=== PATIENT | male | born 1965 | race Caucasian/White ===

== ENCOUNTER 2017-12-15 14:05 | Inpatient (IN) | payer OTHER ==
[2017-12-15] VITALS (19 sets, daily range): BP systolic 91–135; BP diastolic 58–97
[~2017-12-15] VITALS: Ht 167.6 cm; Wt 61.7 kg
[2017-12-15] MEDS ORDERED: ECOTRIN325 MG PO (14:13)
[2017-12-15] MEDS ORDERED: ACETAMINOPHEN500 M1 PO (14:14)
[2017-12-15 14:52] LABS: BASOPHILS 0.5 % (0-2); EOSINOPHILS 1.4 % (0-7); HEMATOCRIT 24.9 % (42.0-54.0); HEMOGLOBIN 8.2 g/dL (13.5-17.5); IMMATURE GRANULOCYTES 0.4 % (0-5); MCH 29.9 pg (26.0-34.0); MCHC 32.9 g/dL (31.0-37.0); MCV 90.9 fL (80.0-100.0); MEAN PLATELET VOLUME 8.7 fL (7.4-10.4); MONOCYTES 4.3 % (2-11); NEUTROPHILS 68.4 % (40-80); PLATELET COUNT 337 10x3/uL (130-400); RBC 2.74 10x6/uL (4.20-6.10); RDW 15.4 % (11.5-14.5); WBC 8.5 10x3/uL (4.8-10.8)
[2017-12-15 14:58] LABS: PROTIME 12.8 SECONDS (11.6-15.0)
[2017-12-15 15:06] LABS: ALBUMIN 3.2 g/dL (3.4-5.0); ALKALINE PHOSPHATASE 48 U/L (46-116); ALT (SGPT) 30 U/L (10-68); CALC OSMOLALITY 278 mosm/kg (275-300); CALCIUM 8.2 mg/dL (8.5-10.1); CARBON DIOXIDE 27.1 mmol/L (21.0-32.0); CHLORIDE - SERUM 103 mmol/L (98-107); CREATININE - SERUM 0.7 mg/dL (0.6-1.3); GLUCOSE 109 mg/dL (74-106); POTASSIUM - SERUM 4.2 mmol/L (3.5-5.1); PROTEIN - SERUM 6.2 g/dL (6.4-8.2); SODIUM 137 mmol/L (136-145); UREA NITROGEN 23 mg/dL (7-18); eGFR NON AFRICAN AMERICAN > 90 mL/min (90-120)
[2017-12-15 15:23] LABS: AMYLASE - SERUM 138 U/L (25-115); CKMB 2.6 U/L (0.0-3.6)
[2017-12-15 22:17] LABS: CREATINE KINASE 172 UL (21-232)
[2017-12-15 22:18] LABS: TROPONIN-I < 0.017 ng/mL (0.000-0.060)
[2017-12-16] VITALS (25 sets, daily range): BP systolic 92–118; BP diastolic 55–91; Ht 167.6 cm; Wt 61.7 kg
[2017-12-16 03:59] LABS: BASOPHILS 0.3 % (0-2); HEMATOCRIT 29.1 % (42.0-54.0); HEMOGLOBIN 9.6 g/dL (13.5-17.5); IMMATURE GRANULOCYTES 0.4 % (0-5); LYMPHOCYTES 15.8 % (15-50); MCH 29.2 pg (26.0-34.0); MEAN PLATELET VOLUME 8.8 fL (7.4-10.4); MONOCYTES 3.8 % (2-11); NEUTROPHILS 78.7 % (40-80); PLATELET COUNT 279 10x3/uL (130-400); RDW 16.2 % (11.5-14.5)
[2017-12-16 04:03] LABS: MCV 88.4 fL (80.0-100.0); RBC 3.29 10x6/uL (4.20-6.10); WBC 11.3 10x3/uL (4.8-10.8)
[2017-12-16 04:22] LABS: ALKALINE PHOSPHATASE 41 U/L (46-116); ALT (SGPT) 27 U/L (10-68); AMYLASE - SERUM 143 U/L (25-115); BILIRUBIN - TOTAL 0.25 mg/dL (0.2-1.3); CALC OSMOLALITY 276 mosm/kg (275-300); CARBON DIOXIDE 28.5 mmol/L (21.0-32.0); CHLORIDE - SERUM 104 mmol/L (98-107); CREATININE - SERUM 0.6 mg/dL (0.6-1.3); GLUCOSE 105 mg/dL (74-106); LIPASE 337 U/L (73-393); MAGNESIUM - SERUM 1.9 mg/dL (1.8-2.4); POTASSIUM - SERUM 3.9 mmol/L (3.5-5.1); PROTEIN - SERUM 5.8 g/dL (6.4-8.2); SODIUM 137 mmol/L (136-145); UREA NITROGEN 22 mg/dL (7-18); eGFR NON AFRICAN AMERICAN > 90 mL/min (90-120)
[2017-12-16 08:59] LABS: HEMOGLOBIN 9.5 g/dL (13.5-17.5)
[2017-12-16 15:05] LABS: HEMATOCRIT 28.3 % (42.0-54.0); HEMOGLOBIN 9.4 g/dL (13.5-17.5)
[2017-12-16 21:16] LABS: HEMATOCRIT 27.4 % (42.0-54.0)
[2017-12-17] VITALS (13 sets, daily range): BP systolic 95–126; BP diastolic 62–94
[2017-12-17 04:18] LABS: BASOPHILS 0.4 % (0-2); EOSINOPHILS 3.9 % (0-7); HEMATOCRIT 27.5 % (42.0-54.0); HEMOGLOBIN 9.1 g/dL (13.5-17.5); IMMATURE GRANULOCYTES 0.3 % (0-5); LYMPHOCYTES 28.7 % (15-50); MCH 29.3 pg (26.0-34.0); MCHC 33.1 g/dL (31.0-37.0); MCV 88.4 fL (80.0-100.0); MEAN PLATELET VOLUME 8.7 fL (7.4-10.4); MONOCYTES 7.2 % (2-11); NEUTROPHILS 59.5 % (40-80); PLATELET COUNT 314 10x3/uL (130-400); RBC 3.11 10x6/uL (4.20-6.10); RDW 16.5 % (11.5-14.5)
[2017-12-17 04:21] LABS: WBC 7.9 10x3/uL (4.8-10.8)
[2017-12-17 04:33] LABS: ALBUMIN 2.7 g/dL (3.4-5.0); ALKALINE PHOSPHATASE 35 U/L (46-116); ALT (SGPT) 23 U/L (10-68); BILIRUBIN - TOTAL 0.24 mg/dL (0.2-1.3); CARBON DIOXIDE 27.1 mmol/L (21.0-32.0); CHLORIDE - SERUM 107 mmol/L (98-107); GLUCOSE 90 mg/dL (74-106); MAGNESIUM - SERUM 1.8 mg/dL (1.8-2.4); POTASSIUM - SERUM 3.5 mmol/L (3.5-5.1); PROTEIN - SERUM 5.5 g/dL (6.4-8.2); SODIUM 141 mmol/L (136-145)
[2017-12-17 04:35] LABS: CALC OSMOLALITY 281 mosm/kg (275-300); CREATININE - SERUM 0.8 mg/dL (0.6-1.3); UREA NITROGEN 15 mg/dL (7-18); eGFR NON AFRICAN AMERICAN > 90 mL/min (90-120)
[2017-12-18 04:00] VITALS: BP 112/70
[2017-12-18 05:26] LABS: BASOPHILS 0.3 % (0-2); EOSINOPHILS 3.2 % (0-7); HEMATOCRIT 28.9 % (42.0-54.0); HEMOGLOBIN 9.4 g/dL (13.5-17.5); IMMATURE GRANULOCYTES 0.1 % (0-5); LYMPHOCYTES 24.4 % (15-50); MCH 29.1 pg (26.0-34.0); MCHC 32.5 g/dL (31.0-37.0); MCV 89.5 fL (80.0-100.0); MEAN PLATELET VOLUME 8.8 fL (7.4-10.4); PLATELET COUNT 346 10x3/uL (130-400); RBC 3.23 10x6/uL (4.20-6.10); RDW 16.6 % (11.5-14.5); WBC 7.6 10x3/uL (4.8-10.8)
[2017-12-18 05:59] LABS: ALBUMIN 2.9 g/dL (3.4-5.0); ALKALINE PHOSPHATASE 46 U/L (46-116); ALT (SGPT) 22 U/L (10-68); AMYLASE - SERUM 118 U/L (25-115); BILIRUBIN - TOTAL 0.23 mg/dL (0.2-1.3); CALCIUM 8.5 mg/dL (8.5-10.1); CARBON DIOXIDE 28.2 mmol/L (21.0-32.0); CHLORIDE - SERUM 104 mmol/L (98-107); CREATININE - SERUM 0.7 mg/dL (0.6-1.3); GLUCOSE 115 mg/dL (74-106); MAGNESIUM - SERUM 1.8 mg/dL (1.8-2.4); POTASSIUM - SERUM 3.6 mmol/L (3.5-5.1); SODIUM 137 mmol/L (136-145); eGFR NON AFRICAN AMERICAN > 90 mL/min (90-120)
[2017-12-18 06:04] LABS: CALC OSMOLALITY 273 mosm/kg (275-300); UREA NITROGEN 10 mg/dL (7-18)
[2017-12-18 09:32] VITALS: BP 116/74
[2017-12-18 13:30] VITALS: BP 102/71
[2017-12-18 16:33] VITALS: BP 111/66
[2017-12-18 19:49] VITALS: BP 122/72
[2017-12-19] VITALS: BP 110/74
[2017-12-19 04:00] VITALS: BP 108/69
[2017-12-19 04:34] LABS: BASOPHILS 0.3 % (0-2); EOSINOPHILS 4.7 % (0-7); HEMATOCRIT 29.9 % (42.0-54.0); IMMATURE GRANULOCYTES 0.2 % (0-5); MCH 29.8 pg (26.0-34.0); MCHC 33.4 g/dL (31.0-37.0); MEAN PLATELET VOLUME 8.7 fL (7.4-10.4); MONOCYTES 9.2 % (2-11); NEUTROPHILS 58.6 % (40-80); PLATELET COUNT 332 10x3/uL (130-400); RBC 3.36 10x6/uL (4.20-6.10); RDW 15.9 % (11.5-14.5); WBC 6.5 10x3/uL (4.8-10.8)
[2017-12-19 04:54] LABS: ALBUMIN 2.8 g/dL (3.4-5.0); ALKALINE PHOSPHATASE 57 U/L (46-116); ALT (SGPT) 22 U/L (10-68); BILIRUBIN - TOTAL 0.15 mg/dL (0.2-1.3); CALC OSMOLALITY 285 mosm/kg (275-300); CALCIUM 8.9 mg/dL (8.5-10.1); CARBON DIOXIDE 27.6 mmol/L (21.0-32.0); CHLORIDE - SERUM 105 mmol/L (98-107); CREATININE - SERUM 0.7 mg/dL (0.6-1.3); GLUCOSE 113 mg/dL (74-106); MAGNESIUM - SERUM 1.9 mg/dL (1.8-2.4); SODIUM 142 mmol/L (136-145); UREA NITROGEN 17 mg/dL (7-18); eGFR NON AFRICAN AMERICAN > 90 mL/min (90-120)
[2017-12-19 07:00] VITALS: BP 132/73
[2017-12-19] MEDS ORDERED: PROTONIX40 MG PO (09:35)
[2017-12-19 13:22] VITALS: BP 115/86
[2017-12-19 15:46] VITALS: BP 110/67
== END 2017-12-19 16:36 | disposition home or self-care (01) | DRG 378 ==
LOC: D.ER 14:05 → D.ICU 17:45 → D.MS 12-17 13:41
PROVIDERS: Family Medicine; Internal Medicine Gastroenterology
PROC: 0W3P8ZZ Control Bleeding in Gastrointestinal Tract, Via Natural or Artificial Opening Endoscopic (ICD-10-PCS; 2017-12-15)
PROC: 0DB78ZX Excision of Stomach, Pylorus, Via Natural or Artificial Opening Endoscopic, Diagnostic (ICD-10-PCS; 2017-12-15)
PROC: 3E0G8GC Introduction of Other Therapeutic Substance into Upper GI, Via Natural or Artificial Opening Endoscopic (ICD-10-PCS; principal; 2017-12-15 19:34)
DX: K26.4 Chronic or unspecified duodenal ulcer with hemorrhage (principal); D62 Acute posthemorrhagic anemia; F17.213 Nicotine dependence, cigarettes, with withdrawal; K25.9 Gastric ulcer, unspecified as acute or chronic, without hemorrhage or perforation; K62.89 Other specified diseases of anus and rectum; K29.70 Gastritis, unspecified, without bleeding; K44.9 Diaphragmatic hernia without obstruction or gangrene; G89.29 Other chronic pain; M54.9 Dorsalgia, unspecified; K20.9 Esophagitis, unspecified